=== PATIENT | female | born 1985 | race Caucasian/White ===

== ENCOUNTER 2024-01-17 08:32 | Day surgery (SDC) | payer OTHER ==
[~2024-01-17] VITALS: Ht 157.5 cm; Wt 113.4 kg
[~2024-01-17 08:32] MED LIST: ADVI200T PO
[2024-01-17] MEDS ORDERED: ONDANSETRON 4MG 2ML VIAL As Ordered ONE (09:09)
[2024-01-17] MEDS ORDERED: ROCURONIUM BROMIDE 50MG/5ML VIAL As Ordered ONE (09:09)
[2024-01-17] MEDS ORDERED: propofoL 200 MG/20 ML VIAL As Ordered ONE (09:10)
[2024-01-17] MEDS ORDERED: LIDOCAINE 2% 100MG/5ML SDV (FOR ANES.) As Ordered ONE (09:10)
[2024-01-17] MEDS ORDERED: SUGAMMADEX SODIUM 500 MG/5 ML VIAL (BRIDION) As Ordered ONE (09:10)
[2024-01-17] MEDS ORDERED: fentaNYL 100 MCG/2 ML INJECTION As Ordered ONE (09:13)
[2024-01-17] MEDS ORDERED: MIDAZOLAM INJ 2MG/2ML VIAL As Ordered ONE (09:13)
[2024-01-17] MEDS ORDERED: LR 1,000 ML IV SCH ×2 (09:20→11:05)
[2024-01-17] MEDS ORDERED: ACETAMINOPHEN 1000MG 100ML IV BAG As Ordered ONE (10:12)
[2024-01-17] MEDS: LIDOCAINE W/EPINEPHRINE 1% 20ML VIAL As Ordered ONE (10:26)
[2024-01-17] MEDS ORDERED: fentaNYL 100 MCG/2 ML INJECTION IV PRN (10:55)
[2024-01-17] MEDS ORDERED: ONDANSETRON 4MG 2ML VIAL IV PRN (10:55)
[2024-01-17] MEDS: HYDROMORPHONE HCL 0.5 MG/ 0.5 ML SYRINGE IV PRN (11:04)
[2024-01-17] MEDS: oxyCODONE 5MG TAB PO PRN (11:47)
[2024-01-17 12:57] VITALS: BP 120/70; TEMP 97.7; O2SAT 97
== END 2024-01-17 13:19 | disposition home or self-care (01) ==
LOC: M SDC 08:32
PROVIDERS: ATTEND Dentist Oral and Maxillofacial Surgery
DX: K02.9 Dental caries, unspecified (principal); F41.9 Anxiety disorder, unspecified
CPT/HCPCS: 81025; 88300; D7210; D9223; J0131; J1100; J1170; J2250; J2405; J3010